=== PATIENT | female | born 1995 | race African-American/Black ===

== ENCOUNTER 2016-10-18 20:29 | Emergency (ER) | payer OTHER ==
[~2016-10-18] VITALS: Ht 154.9 cm; Wt 68.0 kg
[2016-10-18] MEDS ORDERED: METOCLOPRAMIDE HCL 10 MG/2 ML VIAL IM ONE (22:30)
[2016-10-18] MEDS ORDERED: diphenhydrAMINE HCL 50 MG/ML VIAL IM ONE (22:30)
[2016-10-18] MEDS ORDERED: diphenhydrAMINE HCL 50 MG/ML VIAL ONE (22:35)
[2016-10-18] MEDS ORDERED: METOCLOPRAMIDE HCL 10 MG/2 ML VIAL ONE (22:35)
[2016-10-18] MEDS ORDERED: ACETAMINOPHEN ES 500 MG TABLET ONE (22:39)
[2016-10-19 00:02] VITALS: BP 118/70
== END 2016-10-19 00:03 | disposition home or self-care (01) ==
LOC: ER 20:29
DX: R51 Headache (principal); Z88.6 Allergy status to analgesic agent
CPT/HCPCS: 70450; 84703; 99284; A4606; J1200; J2765; Z7610

== ENCOUNTER 2017-11-02 12:13 | Emergency (ER) | payer BC, OTHER ==
[~2017-11-02] VITALS: Ht 154.9 cm; Wt 66.2 kg
--- NOTE | 2017-11-02 12:29 | NUR ---
PATIENT TO ED DT CHEST TIGHTNESS/ANXIETY X 3 DAYS. PATIENT IS AAO4. VSS. NOT IN DISTRESS
[2017-11-02 13:06] LABS: BASOPHILS % (AUTO) 0.7 % (0.0-2.0); EOSINOPHILS % (AUTO) 5.3 % (0.0-6.0); HEMATOCRIT 39 % (33-45); HEMOGLOBIN 12.4 g/dL (11.5-14.8); LYMPHOCYTES # (AUTO) 2.2 /CMM (0.8-4.8); LYMPHOCYTES % (AUTO) 33.4 % (20.0-44.0); MEAN CORPUSCULAR HGB CONC 32 g/dl (31.0-36.0); MEAN CORPUSCULAR VOLUME 73 fL (82-100); MONOCYTES # (AUTO) 0.4 /CMM (0.1-1.30); NEUTROPHILS # (AUTO) 3.7 /CMM (1.8-8.9); NEUTROPHILS % (AUTO) 54.6 % (43.0-81.0); PLATELET COUNT (AUTO) 328 /CMM (150-450); RDW COEFFICIENT OF VARIATION 13.9 (11.5-15.0); RED BLOOD CELL COUNT(AUTO) 5.26 MIL/uL (4.0-5.2); WHITE BLOOD COUNT (AUTO) 6.7 K/uL (4.3-11.0)
[2017-11-02 13:16] LABS: CALCIUM, SERUM 9.3 mg/dL (8.5-10.1); CARBON DIOXIDE 29 mmol/L (21-32); CHLORIDE 104 mmol/L (98-107); GLUCOSE 85 mg/dL (74-106); POTASSIUM 3.5 mmol/L (3.5-5.1); SODIUM SERUM 140 mmol/L (136-145); UREA NITROGEN, BLOOD 12 mg/dL (7-18)
[2017-11-02 13:25] LABS: TROPONIN I < 0.017 ng/mL (0.00-0.056)
[2017-11-02 13:46] VITALS: BP 118/80
--- NOTE | 2017-11-02 13:47 | NUR ---
Patient discharged to home in stable condition. Written and verbal after care instructions given. Patient verbalizes understanding of instruction.
== END 2017-11-02 13:48 | disposition home or self-care (01) ==
LOC: ER 12:15
DX: R07.89 Other chest pain (principal); Z88.6 Allergy status to analgesic agent
CPT/HCPCS: 36415; 71045-TC; 80048-TC; 84484-TC; 85025-TC; A4606; Z7610